=== PATIENT | male | born 1945 | race Caucasian/White ===

== ENCOUNTER 2016-11-03 14:26 | Emergency (ER) | payer MEDICARE, OTHER ==
[2016-11-03 14:35] VITALS: BP 115/64
[2016-11-03] MEDS ORDERED: Bacitracin/Neomycin/Polymyxin B Oint 0.9 GM U/D Packet TOP ONE (14:47)
--- NOTE | 2016-11-03 14:49 | EDM.PDOC ---
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 Original injury was 3 weeks ago. Sutures removed and knee steri-stripped. Somehow patient broke open the suture line since sometime last evening. Advanced dementia. Clear drainage from suture line. No other complaints. - Related Data Allergies Allergy/AdvReac Type Severity Reaction Status Date / Time No Known Allergies Allergy Verified 10/13/16 18:58 Home Meds: Ambulatory Orders Medication Instructions Recorded Confirmed Docusate Sodium 100 mg PO DAILY PRN 10/13/16 11/03/16 QUEtiapine [SEROquel] 50 mg PO TID 10/13/16 11/03/16 Rivastigmine Tartrate 3 mg PO DAILY 10/13/16 11/03/16 [Rivastigmine] Acetaminophen 650 mg PO Q4H PRN 11/03/16 11/03/16 Past Medical History HEENT History: Reports: Hard of hearing, Impaired vision, Other (see below) Other HEENT History: preglaucoma Respiratory History: Reports: Other (see below) Other Respiratory History: solitary pulmonary nodule Gastrointestinal History: Reports: Chronic constipation, GERD Genitourinary History: Reports: Prostate disorder Musculoskeletal History: Reports: Osteoarthritis Psychiatric History: Reports: Dementia, PTSD, Other (see below) Other Psychiatric History: dementia with lewy bodies - Past Surgical History HEENT Surgical History: Reports: None Social & Family History - Tobacco Use Smoking Status *Q: Former Smoker Years of Tobacco use: 2 Packs/Tins Daily: 1 Used Tobacco, but Quit: Yes Month Tobacco Last Used: 5 yrs ago Second Hand Smoke Exposure: No - Caffeine Use Caffeine Use: Reports: None - Recreational Drug Use Recreational Drug Use: No ED ROS GENERAL - Review of Systems Review Of Systems: ROS reveals no pertinent complaints other than HPI. ED EXAM, SKIN/RASH Exam: See Below Exam Limited By: Altered mental status (dementia) General Appearance: alert (awake, sitting in wheelchair), no apparent distress Head: atraumatic, normocephalic Respiratory/Chest: no respiratory distress Extremities: other (No swelling around affected right knee, no increased warmth or erythema. Partially healed suture line noted, with dehiscence in central portion. Full thickness. Approximately 4cm opened up. Does not appear tender with palpation. ) Neurological: alert Course - Vital Signs Last Recorded V/S: Last Vital Signs Temp 36.4 C 11/03/16 14:28 Pulse 86 11/03/16 14:28 Resp 20 11/03/16 14:28 BP 115/64 11/03/16 14:28 Pulse Ox 100 11/03/16 14:28 - Orders/Labs/Meds Meds: Medications Discontinued Medications Generic Name Dose Route Start Last Admin Trade Name Freq PRN Reason Stop Dose Admin Neomycin/Polymyxin/Bacitracin 1 each 11/03/16 14:47 11/03/16 14:51 Triple Antibiotic Oint TOP 11/03/16 14:48 1 each ONETIME ONE Administration - Re-Assessments/Exams Free Text/Narrative Re-Assessment/Exam: 11/03/16 15:07 Unable to re-suture wound due to it's history of dehiscence and length of time it was open. 3 edel placed to keep margins together but allow drainage to continue as needed. Wound cleansed with saline. Antibiotic ointment applied to margins. Bandage then applied. Will request BID bandage changes and antibiotic ointment. Staff is to watch for changes and if any sign of infection develops patient will need placed on oral antibiotics. Wound check recommended for Saturday or Saturday at latest. Departure - Departure Time of Disposition: 14:47 Disposition: DC/Tfer to [facility] 03 Condition: good Clinical Impression: Wound dehiscence Forms: ED Department Discharge Additional Instructions: Keep dressing over wound to help with drainage. Triple antibiotic ointment twice daily. Follow up with [facility] Saturday or Saturday for wound check. Follow up as needed if any sign of infection develops, including worsening drainage, increased redness, fevers, purulent changes. Edel out 10-12 days
== END 2016-11-03 15:01 ==
LOC: LL.ED 14:26
DX: T81.30XA Disruption of wound, unspecified, initial encounter (principal); F03.90 Unspecified dementia, unspecified severity, without behavioral disturbance, psychotic disturbance, mood disturbance, and anxiety; K21.9 Gastro-esophageal reflux disease without esophagitis; M19.90 Unspecified osteoarthritis, unspecified site; Z87.891 Personal history of nicotine dependence
CPT/HCPCS: 12001; 99282

== ENCOUNTER 2018-01-19 13:21 | Emergency (ER) | payer MEDICARE, OTHER ==
--- NOTE | 2018-01-19 14:20 | EDM.PDOC ---
ED HPI GENERAL MEDICAL PROBLEM - General Chief Complaint: General Stated Complaint: Left Hip Pain Time Seen by Provider: 01/19/18 13:37 Source of Information: Reports: Other ([facility] staff) History Limitations: Reports: Altered Mental Status - History of Present Illness INITIAL COMMENTS - FREE TEXT/NARRATIVE: Patient noted to be complaining of discomfort in hip area when he was sitting in tub chair earlier today. Complaining of pain in left hip area. Staff worried about possible fracture as patient is prone to falls and has fallen recently. No other specific complaints from [facility] staff other than "lump" left elbow area. Patient it otherwise acting like usual self. No recent head trauma. No reported medication changes. No reported other changes in health/fever/appetite. Patient has dementia and is unable to give accurate ROS. No discomfort when patient allowed to lay still. He did show discomfort when left hip palpated. Patient was able to ambulate at [facility] prior to being sent to ER for evaluation. - Related Data Allergies Allergy/AdvReac Type Severity Reaction Status Date / Time No Known Allergies Allergy Verified 10/13/16 18:58 Home Meds: Home Meds Docusate Sodium 100 mg PO DAILY PRN 10/13/16 [History] QUEtiapine [SEROquel] 50 mg PO TID 10/13/16 [History] Rivastigmine Tartrate [Rivastigmine] 3 mg PO DAILY 10/13/16 [History] Acetaminophen 650 mg PO Q4H PRN 11/03/16 [History] Past Medical History HEENT History: Reports: Hard of Hearing, Impaired Vision, Other (See Below) Other HEENT History: preglaucoma Respiratory History: Reports: Other (See Below) Other Respiratory History: solitary pulmonary nodule Gastrointestinal History: Reports: Chronic Constipation, GERD Genitourinary History: Reports: Prostate Disorder Musculoskeletal History: Reports: Osteoarthritis Psychiatric History: Reports: Dementia, PTSD, Other (See Below) Other Psychiatric History: dementia with lewy bodies - Past Surgical History HEENT Surgical History: Reports: None Social & Family History - Family History Family Medical History: Unobtainable - Tobacco Use Smoking Status *Q: Unknown Ever Smoked - Caffeine Use Caffeine Use: Reports: None - Alcohol Use Alcohol Use History: No - Recreational Drug Use Recreational Drug Use: No Drug Use in Last 12 Months: No ED ROS GENERAL - Review of Systems Review Of Systems: Unable To Obtain ED EXAM, GENERAL - Physical Exam Exam: See Below Exam Limited By: Altered Mental Status General Appearance: Alert, No Apparent Distress, Thin Eye Exam: Bilateral Eye: EOMI, PERRL Ears: Normal External Exam, Normal Canal Nose: No: Nasal Deformity, Nasal Swelling, Nasal Drainage Throat/Mouth: Normal Lips, No Airway Compromise Head: Atraumatic, Normocephalic Neck: Supple, Non-Tender Respiratory/Chest: No Respiratory Distress, Lungs Clear, Normal Breath Sounds, No Accessory Muscle Use, Chest Non-Tender Cardiovascular: Regular Rate, Rhythm, Systolic Murmur Peripheral Pulses: 2+: Radial (L), Radial (R) GI/Abdominal: Soft, Non-Tender (Male) Exam: Other (bruising noted left hip area, does not appear to extend into genital region). No: Scrotal Swelling Rectal (Males) Exam: Deferred Back Exam: Other (No specific bone tenderness identified with palpation along entire spine/tailbone. No noted bruising over back area/no tenderness. ) Extremities: Normal Capillary Refill, Other (negative straight leg raise. No shorting/rotation of lower leg noted. Patient does have some significant bruising over left lateral hip/buttock area. Skin is intact. Area mildy firm to touch suggesting some degree of soft tissue swelling and hematoma formation. Pelvis appears stable. Bursa left elbow is enlarged but is not tender with palpation. No erythema around bursa. ). No: Arm Pain Neurological: Alert, Other (appears to have equal tone/strength bilateral upper and lower extremities. ) Psychiatric: Normal Affect, Normal Mood Skin Exam: Warm, Dry, Ecchymosis, Other (healing skin tear left forearm. Several healing small abrasions left buttock/hip. ) Course - Orders/Labs/Meds Orders: Active Orders 24 hr Category Date Time Status Hip Min 3V or 4V w Pelvis Bi [CR] Stat Exams 01/19/18 13:23 Taken - Radiology Interpretation Free Text/Narrative:: Xrays of pelvis and hips do not appear to show obvious fracture. Radiology review still pending. - Re-Assessments/Exams Free Text/Narrative Re-Assessment/Exam: 01/19/18 14:39 Patient noted to have significant bruising over left hip and buttock area, however no obvious fractures identified. OK to return to [facility] home. To follow up on next [facility] rounds for recheck as well as to discuss if any other changes can be made to help reduce fall risk. To follow up otherwise as needed. UA recommended to r/o any possible UTI involvement with falls. Departure - Departure Time of Disposition: 14:13 Disposition: DC/Tfer to SNF 03 Condition: Fair Clinical Impression: Multiple falls, Effusion of bursa of left elbow Contusion of left hip Qualifiers: Encounter type: initial encounter Qualified Code(s): S70.02XA - Contusion of left hip, initial encounter - Discharge Information Referrals: Sheets-Florencia Morfin MD [Primary Care Provider] - Forms: ED Department Discharge Additional Instructions: Follow up as needed. Fall precautions as able to provide. Recommend urinalysis and follow up with [facility] on routine rounding if falls are becoming more frequent. - My Orders Last 24 Hours: My Active Orders 01/19/18 13:23 Hip Min 3V or 4V w Pelvis Bi [CR] Stat - Assessment/Plan Last 24 Hours: My Active Orders 01/19/18 13:23 Hip Min 3V or 4V w Pelvis Bi [CR] Stat
[2018-01-19 14:38] VITALS: BP 136/69
== END 2018-01-19 14:53 ==
LOC: LL.ED 13:21
DX: S70.02XA Contusion of left hip, initial encounter (principal); M25.422 Effusion, left elbow; K21.9 Gastro-esophageal reflux disease without esophagitis; Z79.899 Other long term (current) drug therapy; X50.9XXA Other and unspecified overexertion or strenuous movements or postures, initial encounter; Z91.81 History of falling
CPT/HCPCS: 99283

== ENCOUNTER 2018-01-21 15:58 | Emergency (ER) | payer MEDICARE, OTHER ==
[2018-01-21 16:01] VITALS: BP 100/65
--- NOTE | 2018-01-21 16:06 | EDM.PDOC ---
ED HPI GENERAL MEDICAL PROBLEM - General Chief Complaint: General Stated Complaint: recurrent falls, left hip pain Time Seen by Provider: 01/21/18 16:05 Source of Information: Reports: Patient, [facility] Records (Limited), Old Records ([facility] EMR. No paper hospital chart available.) History Limitations: Reports: Altered Mental Status - History of Present Illness INITIAL COMMENTS - FREE TEXT/NARRATIVE: The patient was brought to the emergency room via transport vehicle from [facility] in [place] secondary to an additional fall this afternoon with only limited information obtained from the shelter prior to transfer. Subsequent to arrival to the shelter telephone consultation between our emergency room nurse, Sonya, and the nurses from the shelter indicates a non-witnessed fall at about 15:00 hours with possible mild head injury, however no known headaches, visual changes, nausea/emesis, loss of consciousness, change in neurological deficits/mental status, or other complaints or injuries other than as below. Patient does have a previous history of recurrent falls likely secondary to his Parkinson's disease with evaluation in this emergency room on 01/19 for a similar problem with negative x-rays at that time. He has had problems weightbearing on his left hip since today's injury, however normally ambulates without a walker with some problems with ambulation, including shuffled gait, etc.. He did initially apparently complain of some nonspecific left wrist pain, however no complaints at this time. 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 The patient is unable to rate his pain or discomfort. No treatment given prior to transfer to this facility. Onset: Today, Unknown/Unsure Onset Date: 01/21/18 Duration: Constant Location: Reports: Upper Extremity, Left (Briefly initially as above), Lower Extremity, Left. Denies: Head, Face, Neck, Chest, Abdomen, Back, Pelvis, Upper Extremity, Right, Lower Extremity, Right, Radiates to Quality: Reports: Same as Previous Episode Severity: Mild Improves with: Reports: Rest Worsens with: Reports: Movement Context: Reports: Other (As above) Associated Symptoms: Reports: Confusion (Stable by history). Denies: Chest Pain , Cough, Diaphoresis, Fever/Chills, Headaches, Malaise, Nausea/Vomiting, Seizure , Shortness of Breath, Syncope, Weakness Treatments SHEEPSKIN PICKLER: Reports: Other (see below) (None) - Related Data Allergies Allergy/AdvReac Type Severity Reaction Status Date / Time No Known Allergies Allergy Verified 10/13/16 18:58 Home Meds: Home Meds Docusate Sodium 100 mg PO DAILY PRN 10/13/16 [History] Acetaminophen 650 mg PO Q4H PRN 11/03/16 [History] Acetaminophen [Tylenol Arthritis] 650 mg PO BID@0700,1800 01/21/18 [History] Carbidopa/Levodopa [Sinemet 10-100 mg Tablet] 1 tab PO BID@1100,1500 01/21/18 [ History] Carbidopa/Levodopa [Sinemet 25-100 mg Tablet] 0.5 tab PO DAILY@0700 01/21/18 [ History] Ferrous Sulfate 325 mg PO BID #60 tablet 01/21/18 [Rx] Non-Formulary Medication [NF Drug] 1 patch TOP ASDIRECTED 01/21/18 [History] Omeprazole Magnesium [Prilosec Otc] 20 mg PO BID #60 tablet. 01/21/18 [Rx] Pimavanserin Tartrate [Nuplazid] 35 mg PO DAILY@0700 01/21/18 [History] Rivastigmine Tartrate [Rivastigmine] 1.5 mg PO BID@0700,1800 01/21/18 [History] Past Medical History HEENT History: Reports: Cataract, Glaucoma, Hard of Hearing, Impaired Vision, Other (See Below) Other HEENT History: preglaucoma Cardiovascular History: Reports: High Cholesterol Respiratory History: Reports: Other (See Below) Other Respiratory History: solitary pulmonary nodule Gastrointestinal History: Reports: Chronic Constipation, GERD Genitourinary History: Reports: BPH, Prostate Disorder Musculoskeletal History: Reports: Arthritis, Osteoarthritis Neurological History: Reports: Parkinson's, Other (See Below) Other Neuro History: Recurrent falls possibly secondary to his Parkinson's disease Psychiatric History: Reports: Alzheimers Disease, Dementia, PTSD, Other (See Below) Other Psychiatric History: dementia with lewy bodies Hematologic History: Reports: Anemia Dermatologic History: Reports: Other (See Below) Other Dermatologic History: Actinic keratosis - Past Surgical History HEENT Surgical History: Reports: Cataract Surgery, Oral Surgery, Other (See Below) Other HEENT Surgeries/Procedures: bilateral cataract surgery per clinical exam. Multiple teeth extractions. Social & Family History - Family History Family Medical History: Unobtainable - Tobacco Use Smoking Status *Q: Former Smoker Tobacco Use Within Last Twelve Months: No Used Tobacco, but Quit: Yes Month/Year Tobacco Last Used: Unable to obtain specifics. No use since 2011 per our records Smoking Cessation Information Provided To Patient: No Second Hand Smoke Exposure: No Second Hand Smoke Education Provided: No - Caffeine Use Caffeine Use: Reports: None - Living Situation & Occupation Living situation: Reports: Extended Care Facility ([facility] in [place] on the skilled side admitted in September 2017) ED ROS GENERAL - Review of Systems Review Of Systems: Unable To Obtain ED EXAM, GENERAL - Physical Exam Exam: See Below Exam Limited By: Altered Mental Status General Appearance: Alert, No Apparent Distress Eye Exam: Bilateral Eye: EOMI, Normal Fundi, Normal Inspection (No nystagmus. Patient not wearing glasses), PERRL Ears: Normal External Exam, Normal Canal, Normal TMs, Hearing Loss (Stable presbycusis by history with no hearing aides) Nose: Normal Inspection, Normal Mucosa, No Blood Throat/Mouth: Normal Lips, Normal Gums, Normal Oropharynx, Normal Voice, No Airway Compromise. No: Normal Teeth (Multiple missing teeth with no acute caries), Dysphagia, Perioral Cyanosis Head: Atraumatic, Normocephalic. No: Facial Swelling, Facial Tenderness, Sinus Tenderness Neck: Supple, Non-Tender, Full Range of Motion, Carotid Bruit (Mild bilateral carotid bruits). No: Lymphadenopathy (L), Lymphadenopathy (R) Respiratory/Chest: No Respiratory Distress, Lungs Clear, Normal Breath Sounds, No Accessory Muscle Use, Chest Non-Tender. No: Pleural Rub, Retractions Cardiovascular: Normal Peripheral Pulses, Regular Rate, Rhythm, No Edema, No Gallop, No JVD, No Murmur, No Rub. No: Gallop/S3, Gallop/S4, Friction Rub Peripheral Pulses: 2+: Radial (L), Radial (R), Dorsalis Pedis (L), Dorsalis Pedis (R) GI/Abdominal: Normal Bowel Sounds, Soft, Non-Tender, No Organomegaly, No Distention, No Abnormal Bruit, No Mass, Pelvis Stable. No: Guarding (Male) Exam: Deferred Rectal (Males) Exam: Deferred Back Exam: Normal Inspection, Full Range of Motion. No: CVA Tenderness (L), CVA Tenderness (R), Muscle Spasm Extremities: No Pedal Edema, Normal Capillary Refill, Limited Range of Motion ( Questionable limited range of motion of the left hip with borderline localized tenderness but no deformity, subluxation, rotation, crepitation, etc. Left wrist shows full range of motion with no snuffbox tenderness, deformity, palpation pain, etc.). No: Non-Tender (As below), Joint Swelling, Peggy's Sign Neurological: Normal Reflexes (Negative Babinski's), No Motor/Sensory Deficits, Confused (Stable organic brain syndrome by nurse's history from the shelter with patient mostly nonverbal) Psychiatric: Normal Affect, Normal Mood Skin Exam: Warm, Dry, Intact, No Rash, Pallor (Mild). No: Diaphoretic, Ecchymosis, Petechiae, Wound/Incision Lymphatic: No Adenopathy Course - Vital Signs Last Recorded V/S: Last Vital Signs Temp 36.2 C 01/21/18 16:00 Pulse 74 01/21/18 16:00 Resp 18 01/21/18 16:00 BP 100/65 01/21/18 16:00 Pulse Ox 100 01/21/18 16:00 Vital Signs - 24 hr 01/21/18 16:00 Temperature [ 36.2 C Oral] Pulse, 74 Peripheral [ Right Pulse Oximetry] Respiratory 18 Rate Blood Pressure 100/65 [Right Upper Arm] O2 Sat by Pulse 100 Oximetry - Orders/Labs/Meds Orders: Active Orders 24 hr Category Date Time Status Cardiac Monitoring [RC] . DIRECTED Care 01/21/18 16:06 Active Hip Min 2V or 3V w Pelvis Lt [CR] Stat Exams 01/21/18 16:07 Taken Hip wo Cont Bi [CT] Stat Exams 01/21/18 16:40 Stop Req Pelvis wo Cont [CT] Stat Exams 01/21/18 16:48 Taken VITAMIN B12 [CHEM] Routine Lab 01/21/18 16:45 Ordered Obtain Past Medical Record [OM.PC] Routine Oth 01/21/18 16:06 Active Labs: Laboratory Tests 01/21/18 01/21/18 01/21/18 Range/Units 16:15 16:15 16:15 WBC 6.4 (4.0-10.2) K/uL RBC 2.74 L (4.33-5.41) M/uL Hgb 8.4 L D (13.1-16.8) g/dL Hct 26.4 L (39.0-49.0) % MCV 96.4 (84.0-98.0) fL MCH 30.7 (28.2-33.3) pg MCHC 31.8 (31.7-36.0) g/dL RDW 12.2 (11.2-14.1) % Plt Count 252 (150-350) K/uL Neut % (Auto) 78.9 (45.0-80.0) % Lymph % (Auto) 12.6 (10.0-50.0) % Jasper % (Auto) 7.4 (2.0-14.0) % Eos % (Auto) 0.8 (0.0-5.0) % Baso % (Auto) 0.3 (0.0-2.0) % Neut # (Auto) 5.01 (1.40-7.00) K/uL Lymph # (Auto) 0.80 (0.50-3.50) K/uL Jasper # (Auto) 0.47 (0.00-1.00) K/uL Eos # (Auto) 0.05 (0.00-0.50) K/uL Baso # (Auto) 0.02 (0.00-0.20) K/uL Sodium 140 (136-145) mmol/L Potassium 4.0 (3.5-5.1) mmol/L Chloride 105 (98-107) mmol/L Carbon Dioxide 26.9 (21.0-32.0) mmol/L BUN 37 H (7-18) mg/dL Creatinine 1.02 (0.51-1.17) mg/dL Est Cr Clr Drug Dosing 55.62 mL/min Estimated GFR (MDRD) > 60 mL/min Glucose 104 (74-106) mg/dL Lactic Acid 1.0 (0.4-2.0) mmol/L Calcium 8.6 (8.5-10.1) mg/dL Iron (50-175) ug/dL TIBC (250-450) ug/dL % Saturation Total Bilirubin 0.6 (0.2-1.0) mg/dL AST 16 (15-37) U/L ALT 11 L (12-78) U/L Alkaline Phosphatase 78 (46-116) IU/L Total Protein 6.6 (6.4-8.2) g/dL Albumin 3.5 (3.4-5.0) g/dL 01/21/18 Range/Units 16:15 WBC (4.0-10.2) K/uL RBC (4.33-5.41) M/uL Hgb (13.1-16.8) g/dL Hct (39.0-49.0) % MCV (84.0-98.0) fL MCH (28.2-33.3) pg MCHC (31.7-36.0) g/dL RDW (11.2-14.1) % Plt Count (150-350) K/uL Neut % (Auto) (45.0-80.0) % Lymph % (Auto) (10.0-50.0) % Jasper % (Auto) (2.0-14.0) % Eos % (Auto) (0.0-5.0) % Baso % (Auto) (0.0-2.0) % Neut # (Auto) (1.40-7.00) K/uL Lymph # (Auto) (0.50-3.50) K/uL Jasper # (Auto) (0.00-1.00) K/uL Eos # (Auto) (0.00-0.50) K/uL Baso # (Auto) (0.00-0.20) K/uL Sodium (136-145) mmol/L Potassium (3.5-5.1) mmol/L Chloride (98-107) mmol/L Carbon Dioxide (21.0-32.0) mmol/L BUN (7-18) mg/dL Creatinine (0.51-1.17) mg/dL Est Cr Clr Drug Dosing mL/min Estimated GFR (MDRD) mL/min Glucose (74-106) mg/dL Lactic Acid (0.4-2.0) mmol/L Calcium (8.5-10.1) mg/dL Iron 28 L (50-175) ug/dL TIBC 237 L (250-450) ug/dL % Saturation [id number] Total Bilirubin (0.2-1.0) mg/dL AST (15-37) U/L ALT (12-78) U/L Alkaline Phosphatase (46-116) IU/L Total Protein (6.4-8.2) g/dL Albumin (3.4-5.0) g/dL Meds: None - Radiology Interpretation Free Text/Narrative:: [email or web address] driver shows normal sinus rhythm with heart rate in the 60s to 70s with no ectopy or arrhythmia X-rays of the left hip, 2 views, with additional AP view of the pelvis shows evidence of some malrotation of the right hip with additional possible hairline calcification in the femoral neck but no direct evidence of fracture, dislocation, etc. Moderate bilateral coxarthrosis present. Telephone consultation at 17:39 hours with the radiology department at [facility] with pulmonary verbal report of CT scan of the pelvis without contrast. No evidence of acute fracture or dislocation. Left gluteal hematoma present. CT Results Date: 01/21/18 CT Results Time: 17:39 Departure - Departure Time of Disposition: 18:55 Disposition: DC/Tfer to SNF 03 Condition: Fair Clinical Impression: Left hip pain, PTSD (post-traumatic stress disorder), Comfort measures only status, Parkinsons disease Osteoarthritis Qualifiers: Osteoarthritis location: multiple joints Osteoarthritis type: primary Qualified Code(s): M15.0 - Primary generalized (osteo)arthritis GERD (gastroesophageal reflux disease) Qualifiers: Esophagitis presence: without esophagitis Qualified Code(s): K21.9 - Gastro- esophageal reflux disease without esophagitis Dementia with Lewy bodies Qualifiers: Dementia behavioral disturbance: with behavioral disturbance Qualified Code(s) : G31.83 - Dementia with Lewy bodies; F02.81 - Dementia in other diseases classified elsewhere with behavioral disturbance Anemia Qualifiers: Anemia type: iron deficiency Iron deficiency anemia type: unspecified iron deficiency Qualified Code(s): D50.9 - Iron deficiency anemia, unspecified Contusion of left hip Qualifiers: Encounter type: initial encounter Qualified Code(s): S70.02XA - Contusion of left hip, initial encounter - Discharge Information Prescriptions: Ferrous Sulfate 325 mg PO BID #60 tablet Omeprazole Magnesium [Prilosec Otc] 20 mg PO BID #60 tablet. Instructions: Head Injury, Adult, Anemia, Contusion, Head Injury, Adult, Easy- to-Read Referrals: Radha Saha PA [Primary Care Provider] - Forms: ED Department Discharge Additional Instructions: 1. Notify regular provider concerning recurrent falls, today's ER visit, medication changes, etc. with consideration of further medication adjustments by regular provider. Vitamin B 12 level is still pending 2. Recommend repeat CBC in 1 week with repeat iron studies in one month. Discuss with regular provider as above 3. Continue strict fall precautions 4. Discuss possible stool specimen for H. pylori antigen and Hemoccults 3 with regular provider 5. Ice packs to left hip and gluteal area 4 times a day when necessary 10 days 6. Head precautions as directed-see form. - Problem List & Annotations (1) Contusion of left hip SNOMED Code(s): 49535152 Code(s): S70.02XA - CONTUSION OF LEFT HIP, INITIAL ENCOUNTER Status: Acute Priority: High Onset Date: 01/21/18 Annotation/Comment:: Moderate left hip contusion with borderline mild additional head contusion secondary to recurrent falls as above. Note secondary gluteal hematoma. Symptomatic relief as per discharge instructions. No evidence of significant head injury, head concussion, etc. by clinical exam, etc. Qualifiers: Encounter type: initial encounter Qualified Code(s): S70.02XA - Contusion of left hip, initial encounter (2) Anemia SNOMED Code(s): 081648009 Code(s): D64.9 - ANEMIA, UNSPECIFIED Status: Acute Priority: High Onset Date: 01/21/18 Annotation/Comment:: Progressive anemia today with hemoglobin of 11.2 on 11/06/16 per our hospital records. Anemia may be partial etiology of patient's recurrent falls in addition to his Parkinson's disease as above. Newly diagnosed iron deficiency anemia today. Vitamin B 12 level pending until tomorrow. No direct evidence of abdominal pain, acute bleeding, etc. Initiate iron supplementation with additional oral Prilosec as GI prophylaxis. Continue to observe closely by his regular providers with recommended repeat CBC in one week and iron studies in about one month as per discharge instructions. Qualifiers: Anemia type: iron deficiency (3) GERD (gastroesophageal reflux disease) SNOMED Code(s): 026370407 Code(s): K21.9 - GASTRO-ESOPHAGEAL REFLUX DISEASE WITHOUT ESOPHAGITIS Status: Chronic Priority: Medium Annotation/Comment:: Stable by history with no recent abdominal complaints despite progressive anemia as above. Note comfort care with further GI workup depending on his clinical course. Initiate Prilosec as above with consideration of stool specimen for H. pylori antigen. Qualifiers: Esophagitis presence: without esophagitis Qualified Code(s): K21.9 - Gastro -esophageal reflux disease without esophagitis (4) Comfort measures only status SNOMED Code(s): 44508880519628 Code(s): Z51.5 - ENCOUNTER FOR PALLIATIVE CARE Status: Chronic Priority: Medium Annotation/Comment:: Per shelter records (5) Dementia with Lewy bodies SNOMED Code(s): 413382288 Code(s): G31.83 - DEMENTIA WITH LEWY BODIES; F02.80 - DEMENTIA IN OTH DISEASES CLASSD ELSWHR W/O BEHAVRL DISTURB Status: Chronic Priority: Medium Annotation/Comment:: Stable by history with fairly significant organic brain syndrome/dementia, although the patient is ambulatory Qualifiers: Dementia behavioral disturbance: with behavioral disturbance Qualified Code (s): G31.83 - Dementia with Lewy bodies; F02.81 - Dementia in other diseases classified elsewhere with behavioral disturbance (6) Osteoarthritis SNOMED Code(s): 759551188 Code(s): M19.90 - UNSPECIFIED OSTEOARTHRITIS, UNSPECIFIED SITE Status: Chronic Priority: Medium Annotation/Comment:: Otherwise Stable by history Qualifiers: Osteoarthritis location: multiple joints Osteoarthritis type: primary Qualified Code(s): M15.0 - Primary generalized (osteo)arthritis (7) PTSD (post-traumatic stress disorder) SNOMED Code(s): 40102131 Code(s): F43.10 - POST-TRAUMATIC STRESS DISORDER, UNSPECIFIED Status: Chronic Priority: Medium Annotation/Comment:: Stable by history - Problem List Review Problem List Initiated/Reviewed/Updated: Yes - My Orders Last 24 Hours: My Active Orders 01/21/18 16:06 Cardiac Monitoring [RC] . DIRECTED Obtain Past Medical Record [OM.PC] Routine 01/21/18 16:07 Hip Min 2V or 3V w Pelvis Lt [CR] Stat 01/21/18 16:40 Hip wo Cont Bi [CT] Stat 01/21/18 16:45 VITAMIN B12 [CHEM] Routine 01/21/18 16:48 Pelvis wo Cont [CT] Stat - Assessment/Plan Last 24 Hours: My Active Orders 01/21/18 16:06 Cardiac Monitoring [RC] . DIRECTED Obtain Past Medical Record [OM.PC] Routine 01/21/18 16:07 Hip Min 2V or 3V w Pelvis Lt [CR] Stat 01/21/18 16:40 Hip wo Cont Bi [CT] Stat 01/21/18 16:45 VITAMIN B12 [CHEM] Routine 01/21/18 16:48 Pelvis wo Cont [CT] Stat Assessment:: As above Plan: As above. Extensive precautions were given to the patient, who is in agreement with the treatment plan.
[2018-01-21 16:33] LABS: CHLORIDE,CL 105 mmol/L (98-107); SODIUM,NA 140 mmol/L (136-145)
== END 2018-01-21 18:55 ==
LOC: LL.ED 15:58
DX: S70.02XA Contusion of left hip, initial encounter (principal); F43.10 Post-traumatic stress disorder, unspecified; G20 Parkinson's disease; M15.0 Primary generalized (osteo)arthritis; K21.9 Gastro-esophageal reflux disease without esophagitis; D50.9 Iron deficiency anemia, unspecified; E78.00 Pure hypercholesterolemia, unspecified; Z87.891 Personal history of nicotine dependence; Z79.899 Other long term (current) drug therapy; W19.XXXA Unspecified fall, initial encounter
CPT/HCPCS: 36415; 72192; 80053; 82607; 83540; 83550; 83605; 85025; 99284; 99285

== ENCOUNTER 2018-02-03 01:13 | Emergency (ER) | payer MEDICARE, OTHER ==
--- NOTE | 2018-02-03 01:49 | EDM.PDOC ---
ED HPI GENERAL MEDICAL PROBLEM - General Chief Complaint: General Stated Complaint: multiple falls, hit head, L) hip and back pain Time Seen by Provider: 02/03/18 01:30 Source of Information: Reports: RN (was called and obtain history) History Limitations: Reports: Altered Mental Status - History of Present Illness INITIAL COMMENTS - FREE TEXT/NARRATIVE: patient is a 72-year-old gentleman who was brought from the [facility] for evaluation. He apparently fell4 about 24 hours ago and was being evaluated with neuro exams and checks every shift. Patient had been stable until now when he was not following commands and nurses noted increased pain in both hips and back. Onset: Gradual Duration: Hour(s):, Getting Worse Location: Reports: Back, Pelvis, Lower Extremity, Left, Lower Extremity, Right Quality: Reports: Ache, Stabbing Severity: Moderate (difficult to evaluate since patient has not been able to communicate) Improves with: Reports: Rest Worsens with: Reports: Movement Context: Reports: Trauma Associated Symptoms: Reports: Confusion - Related Data Allergies Allergy/AdvReac Type Severity Reaction Status Date / Time No Known Allergies Allergy Verified 02/03/18 01:31 Home Meds: Home Meds Docusate Sodium 100 mg PO DAILY PRN 10/13/16 [History] Acetaminophen 650 mg PO Q4H PRN 11/03/16 [History] Acetaminophen [Tylenol Arthritis] 650 mg PO BID@0700,1800 01/21/18 [History] Carbidopa/Levodopa [Sinemet 25-100 mg Tablet] 0.5 tab PO DAILY@0700 01/21/18 [ History] Ferrous Sulfate 325 mg PO BID #60 tablet 01/21/18 [Rx] Omeprazole Magnesium [Prilosec Otc] 20 mg PO BID #60 tablet. 01/21/18 [Rx] Rivastigmine Tartrate [Rivastigmine] 1.5 mg PO BID@0700,1800 01/21/18 [History] Bisacodyl [Dulcolax] 5 mg PO DAILY PRN 02/03/18 [History] Carbidopa/Levodopa [Carbidopa-Levodopa 25-100 Tab] 1 each PO BID 02/03/18 [ History] Past Medical History HEENT History: Reports: Cataract, Glaucoma, Hard of Hearing, Impaired Vision, Other (See Below) Other HEENT History: preglaucoma Cardiovascular History: Reports: High Cholesterol Respiratory History: Reports: Other (See Below) Other Respiratory History: solitary pulmonary nodule Gastrointestinal History: Reports: Chronic Constipation, GERD Genitourinary History: Reports: BPH, Prostate Disorder Musculoskeletal History: Reports: Arthritis, Osteoarthritis Neurological History: Reports: Parkinson's, Other (See Below) Other Neuro History: Recurrent falls possibly secondary to his Parkinson's disease Psychiatric History: Reports: Alzheimers Disease, Dementia, PTSD, Other (See Below) Other Psychiatric History: dementia with lewy bodies Hematologic History: Reports: Anemia Dermatologic History: Reports: Other (See Below) Other Dermatologic History: Actinic keratosis - Past Surgical History HEENT Surgical History: Reports: Cataract Surgery, Oral Surgery, Other (See Below) Other HEENT Surgeries/Procedures: bilateral cataract surgery per clinical exam. Multiple teeth extractions. Social & Family History - Family History Family Medical History: Unobtainable - Caffeine Use Caffeine Use: Reports: None - Living Situation & Occupation Living situation: Reports: Extended Care Facility ([facility] in [place] on the [facility] side admitted in September 2017) ED ROS GENERAL - Review of Systems Review Of Systems: See Below Constitutional: Reports: Weakness HEENT: Reports: No Symptoms Respiratory: Reports: No Symptoms Cardiovascular: Reports: No Symptoms GI/Abdominal: Reports: No Symptoms : Reports: No Symptoms Musculoskeletal: Reports: Neck Pain, Back Pain, Other (hip pain) Neurological: Reports: Confusion, Weakness Psychiatric: Reports: Agitation, Confusion Hematologic/Lymphatic: Reports: No Symptoms Immunologic: Reports: No Symptoms ED EXAM, GENERAL - Physical Exam Exam: See Below (patient became very aggressive towards the nurses. He attempted to strike at us and wouldn't follow instructions to stay in bed. He tried getting away. At this time, he was a risk to himself and to the nurses. Due to his pain we gave him Dilaudid 1 mg IM followed by Ativan 1 mg to see if we can control his aggression and agitation. We do not want him to hurt the nurses or himself.) Exam Limited By: Physical Impairment General Appearance: Alert (and awake), WD/WN Ears: Normal External Exam, Normal Canal, Hearing Grossly Normal Nose: Normal Inspection, Normal Mucosa, No Blood Throat/Mouth: Normal Inspection, Normal Lips, Normal Teeth, Normal Gums, Normal Oropharynx, Normal Voice, No Airway Compromise Head: Atraumatic, Normocephalic Respiratory/Chest: No Respiratory Distress, Lungs Clear, Normal Breath Sounds, No Accessory Muscle Use, Chest Non-Tender Cardiovascular: Normal Peripheral Pulses, Regular Rate, Rhythm, No Edema, No Gallop, No JVD, No Murmur, No Rub GI/Abdominal: Normal Bowel Sounds, Soft, Non-Tender, No Organomegaly, No Distention, No Abnormal Bruit, No Mass (Male) Exam: Deferred Rectal (Males) Exam: Deferred Back Exam: Decreased Range of Motion, Paraspinal Tenderness, Vertebral Tenderness Extremities: Limited Range of Motion (lower extremity), Other (pain on range of motion left iliac crests area of swelling with tenderness to palpation as compared to right question ecchymosis of the area) Neurological: Confused, Slow to Respond Psychiatric: Other (difficult to access) Skin Exam: Warm, Dry, Intact, Ecchymosis (lower back left buttocks) Lymphatic: No Adenopathy Course - Vital Signs Last Recorded V/S: Last Vital Signs Temp 98.9 F 02/03/18 01:15 Pulse 73 02/03/18 01:45 Resp 14 02/03/18 01:45 BP 117/59 L 02/03/18 01:45 Pulse Ox 100 02/03/18 01:45 - Orders/Labs/Meds Meds: Medications Discontinued Medications Generic Name Dose Route Start Last Admin Trade Name Rock PRN Reason Stop Dose Admin Hydromorphone HCl Confirm 02/03/18 02:44 02/03/18 02:50 Dilaudid Administered 02/03/18 02:45 Not Given Dose 1 mg .ROUTE .STK-MED ONE Hydromorphone HCl 1 mg 02/03/18 02:44 02/03/18 02:45 Dilaudid IM 02/03/18 02:45 1 mg ONETIME ONE Administration Lorazepam Confirm 02/03/18 03:11 02/03/18 03:32 Ativan Administered 02/03/18 03:12 Not Given Dose 2 mg .ROUTE .STK-MED ONE Lorazepam 1 mg 02/03/18 02:47 02/03/18 02:48 Ativan IM 02/03/18 02:48 1 mg ONETIME ONE Administration Departure - Departure Time of Disposition: 03:00 Disposition: DC/Tfer to SNF 03 Condition: Fair Clinical Impression: Multiple falls Hip hematoma, left Qualifiers: Encounter type: initial encounter Qualified Code(s): S70.02XA - Contusion of left hip, initial encounter - Discharge Information Instructions: Fall Prevention in the Home, [id number], Contusion, Easy-to- Read Referrals: Sheets-Florencia Morfin MD [Primary Care Provider] - Forms: ED Department Discharge Care Plan Goals: At this time since, patient was aggressive and appeared in pain on the x-ray table. We went ahead and gave him Dilaudid 1 mg for his pain while in the emergency room patient attempted to get out of bed and punched the nurses. At this time patient appeared to be a threat to himself and to the staff patient was reoriented with no success we went ahead and gave him 1 mg of Ativan to calm down patient will be transferred to [facility]. Patient to resume Tylenol for pain control at [facility]. 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 labs were not drawn due to agitation during visit. Patient had scheduled lab draws for the morning at [facility] in AM.
[2018-02-03] MEDS ORDERED: HYDROmorphone 1 MG/ML Syringe ONE (02:44)
[2018-02-03] MEDS ORDERED: HYDROmorphone 1 MG/ML Syringe IM ONE (02:44)
[2018-02-03] MEDS ORDERED: LORazepam 2 MG/ML SDV IM ONE (02:47)
[2018-02-03] MEDS ORDERED: LORazepam 2 MG/ML SDV ONE (03:11)
[2018-02-03 06:35] VITALS: BP 117/59
== END 2018-02-03 03:00 ==
LOC: LL.ED 01:13
DX: S70.02XA Contusion of left hip, initial encounter (principal); Z79.899 Other long term (current) drug therapy; E78.00 Pure hypercholesterolemia, unspecified; K21.9 Gastro-esophageal reflux disease without esophagitis; Z91.81 History of falling; W19.XXXA Unspecified fall, initial encounter
CPT/HCPCS: 72100; 72220; 96372; 99284; J1170; J2060

== ENCOUNTER 2018-03-19 01:24 | Emergency (ER) | payer OTHER ==
--- NOTE | 2018-03-19 01:49 | EDM.PDOC ---
ED HPI GENERAL MEDICAL PROBLEM - General Chief Complaint: Lower Extremity Injury/Pain Stated Complaint: fall; left hip pain Time Seen by Provider: 03/19/18 01:45 Source of Information: Reports: Patient, EMS, Correction Records, Old Records ([facility] EMR. No paper hospital chart available.). Denies: EMS Notes Reviewed (Not available at time of dictation) History Limitations: Reports: Altered Mental Status - History of Present Illness INITIAL COMMENTS - FREE TEXT/NARRATIVE: The patient was brought to the emergency room via ambulance with table machine operator accompaniment with no treatment in route. He has a long history of recurrent falls with 3 falls of the last 24 hours. He apparently had an unwitnessed fall at 1 AM with left hip deformity and discomfort since that time. The patient is an extremely poor historian secondary to his baseline again brain syndrome. He is unable to rate his pain. Onset: Today, Sudden Onset Date: 03/19/18 Onset Time: 01:00 Duration: Constant Location: Reports: Lower Extremity, Left. Denies: Head, Face, Neck, Chest, Abdomen, Back, Pelvis, Upper Extremity, Left, Upper Extremity, Right, Lower Extremity, Right, Radiates to Quality: Reports: Same as Previous Episode Improves with: Reports: Rest Worsens with: Reports: Movement Context: Reports: Trauma (As above) Associated Symptoms: Reports: Confusion (Stable moderate to severe). Denies: Nausea/Vomiting Treatments SEAL MIXING OPERATOR: Reports: Other (see below) (None) - Related Data Allergies Allergy/AdvReac Type Severity Reaction Status Date / Time No Known Allergies Allergy Verified 03/19/18 01:39 Home Meds: Home Meds Docusate Sodium 100 mg PO DAILY PRN 10/13/16 [History] Ferrous Sulfate 325 mg PO BID #60 tablet 01/21/18 [Rx] Omeprazole Magnesium [Prilosec Otc] 20 mg PO BID #60 tablet. 01/21/18 [Rx] Rivastigmine Tartrate [Rivastigmine] 1.5 mg PO BID@0700,1800 01/21/18 [History] Bisacodyl [Dulcolax] 5 mg PO DAILY PRN 02/03/18 [History] Acetaminophen [Tylenol Extra Strength] 1,000 mg PO TID 03/19/18 [History] Carbidopa/Levodopa [Sinemet 25-100 mg Tablet] 1 tab PO TID 03/19/18 [History] Melatonin 9 mg PO BEDTIME 03/19/18 [History] QUEtiapine [SEROquel] 25 mg PO DAILY@1400 03/19/18 [History] QUEtiapine [SEROquel] 75 mg PO BEDTIME 03/19/18 [History] Past Medical History HEENT History: Reports: Cataract, Glaucoma, Hard of Hearing, Impaired Vision, Other (See Below) Other HEENT History: preglaucoma Cardiovascular History: Reports: High Cholesterol Respiratory History: Reports: Other (See Below) Other Respiratory History: solitary pulmonary nodule Gastrointestinal History: Reports: Chronic Constipation, GERD Genitourinary History: Reports: BPH, Chronic Renal Insuffiency, Prostate Disorder, Urinary Incontinence, Other (See Below) Other Genitourinary History: Right renal pelvic cyst by CT scan in December 2017 Musculoskeletal History: Reports: Arthritis, Osteoarthritis Neurological History: Reports: Parkinson's, Other (See Below) Other Neuro History: Recurrent falls possibly secondary to his Parkinson's disease Psychiatric History: Reports: Alzheimers Disease, Anxiety, Dementia, Depression , PTSD, Other (See Below) Other Psychiatric History: dementia with Lewy bodies with combativness. Chronic insomnia. Endocrine/Metabolic History: Reports: Other (See Below) Other Endocrine/Metabolic History: Progressive cachexia with hypoalbuminemia Hematologic History: Reports: Anemia, Iron Deficiency Immunologic History: Reports: Immunosuppression, Other (See Below) Other Immunologic History: Cachexia Dermatologic History: Reports: Other (See Below) Other Dermatologic History: Actinic keratosis - Past Surgical History HEENT Surgical History: Reports: Cataract Surgery, Oral Surgery, Other (See Below) Other HEENT Surgeries/Procedures: bilateral cataract surgery per clinical exam. Multiple teeth extractions. - Past Imaging History Past Imaging History: Reports: CAT Scan (CT of the pelvis on 01/21/18. CT of the head on 02/03/18.) Social & Family History - Family History Family Medical History: Unobtainable - Tobacco Use Smoking Status *Q: Current Status Unknown Second Hand Smoke Exposure: No Second Hand Smoke Education Provided: No - Caffeine Use Caffeine Use: Reports: None Caffeine Use Comment: pt has dementia does not answer questions - Living Situation & Occupation Living situation: Reports: Extended Care Facility ([facility] in [place] on the skilled side admitted in September 2017) Review of Systems - Review of Systems Review Of Systems: Unable To Obtain ED EXAM, GENERAL - Physical Exam Exam: See Below Exam Limited By: Altered Mental Status General Appearance: Alert, No Apparent Distress, Cachetic (Mild to moderate) Eye Exam: Bilateral Eye: EOMI, Normal Fundi (No nystagmus), PERRL Ears: Normal External Exam, Normal Canal, Normal TMs Nose: Normal Inspection, Normal Mucosa, No Blood Throat/Mouth: Normal Lips, Normal Teeth (Multiple missing teeth), Normal Gums, Normal Oropharynx, Normal Voice, No Airway Compromise. No: Dysphagia, Perioral Cyanosis Head: Atraumatic, Normocephalic Neck: Normal Inspection, Supple, Non-Tender, Full Range of Motion, Carotid Bruit (Mild bilateral carotid bruits). No: Lymphadenopathy (L), Lymphadenopathy (R) Respiratory/Chest: No Respiratory Distress, Lungs Clear, Normal Breath Sounds, No Accessory Muscle Use, Chest Non-Tender. No: Pleural Rub, Retractions Cardiovascular: Normal Peripheral Pulses, No Edema, No Gallop, No JVD, No Murmur , No Rub, Tachycardia (Regular rhythm). No: Gallop/S3, Gallop/S4, Friction Rub Peripheral Pulses: 2+: Radial (L), Radial (R), Dorsalis Pedis (L), Dorsalis Pedis (R) GI/Abdominal: Normal Bowel Sounds, Soft, Non-Tender, No Organomegaly, No Distention, No Abnormal Bruit, No Mass, Pelvis Stable. No: Guarding (Male) Exam: Deferred Rectal (Males) Exam: Deferred Back Exam: Normal Inspection, Full Range of Motion. No: CVA Tenderness (L), CVA Tenderness (R), Muscle Spasm Extremities: No Pedal Edema, Normal Capillary Refill, Leg Pain (Possible left hip pain), Limited Range of Motion (Left hip with left leg inner rotation) Neurological: Alert, Normal Reflexes (Negative Babinski's), Confused (Stable moderate to severe), Other (Nonverbal. Moderate to severe rigidity and cogwheeling.) Psychiatric: Other (Combative) Skin Exam: Ecchymosis (Multiple minor areas of old ecchymosis secondary to multiple previous falls), Pallor (Moderate). No: Diaphoretic, Wound/Incision Lymphatic: No Adenopathy Course - Vital Signs Last Recorded V/S: Last Vital Signs Temp 37.2 C 03/19/18 03:16 Pulse 108 H 03/19/18 01:40 Resp 16 03/19/18 03:16 BP 101/66 03/19/18 03:16 Pulse Ox 100 03/19/18 03:16 Vital Signs - 24 hr 03/19/18 03/19/18 03/19/18 01:40 01:57 02:35 Temperature [ 37.2 C Oral] Pulse, 108 H Peripheral [ Pulse Oximetry] Respiratory 17 17 17 Rate Blood Pressure 107/80 [Left Upper Arm ] Blood Pressure 123/65 135/84 [Right Upper Arm] O2 Sat by Pulse 100 98 100 Oximetry 03/19/18 03/19/18 02:50 03:16 Temperature [ 37.2 C Oral] Pulse, Peripheral [ Pulse Oximetry] Respiratory 16 16 Rate Blood Pressure 97/70 101/66 [Left Upper Arm ] Blood Pressure [Right Upper Arm] O2 Sat by Pulse 100 100 Oximetry - Orders/Labs/Meds Orders: Active Orders 24 hr Category Date Time Status Cardiac Monitoring [RC] . DIRECTED Care 03/19/18 01:50 Active Peripheral IV Care [RC] . DIRECTED Care 03/19/18 02:47 Active Hip Min 2V or 3V w Pelvis Lt [CR] Stat Exams 03/19/18 01:50 Taken Sodium Chloride 0.9% [Saline Flush] Med 03/19/18 02:46 Active 10 ml FLUSH ASDIRECTED PRN Obtain Past Medical Record [OM.PC] Routine Oth 03/19/18 01:51 Active Peripheral IV Insertion Adult [OM.PC] Routine Oth 03/19/18 02:46 Ordered Medication Orders Sodium Chloride (Saline Flush) 10 ml FLUSH ASDIRECTED PRN PRN Reason: Keep Vein Open Last Admin: 03/19/18 03:15 Dose: 10 ml Labs: Laboratory Tests 03/19/18 03/19/18 03/19/18 Range/Units 02:05 02:05 02:05 WBC 9.0 (4.0-10.2) K/uL RBC 1.92 L (4.33-5.41) M/uL Hgb 5.6 L* D (13.1-16.8) g/dL Hct 18.2 L* (39.0-49.0) % MCV 94.8 (84.0-98.0) fL MCH 29.2 (28.2-33.3) pg MCHC 30.8 L (31.7-36.0) g/dL RDW 12.8 (11.2-14.1) % Plt Count 325 (150-350) K/uL Neut % (Auto) 79.3 (45.0-80.0) % Lymph % (Auto) 12.7 (10.0-50.0) % [place] % (Auto) 6.3 (2.0-14.0) % Eos % (Auto) 1.5 (0.0-5.0) % Baso % (Auto) 0.2 (0.0-2.0) % Neut # (Auto) 7.16 H (1.40-7.00) K/uL Lymph # (Auto) 1.15 (0.50-3.50) K/uL [place] # (Auto) 0.57 (0.00-1.00) K/uL Eos # (Auto) 0.14 (0.00-0.50) K/uL Baso # (Auto) 0.02 (0.00-0.20) K/uL PT 10.6 (9.8-11.7) SEC INR 1.0 APTT 23.6 (22.1-29.8) SEC Sodium 141 (136-145) mmol/L Potassium 4.0 (3.5-5.1) mmol/L Chloride 105 (98-107) mmol/L Carbon Dioxide 28.6 (21.0-32.0) mmol/L BUN 39 H (7-18) mg/dL Creatinine 0.91 (0.51-1.17) mg/dL Est Cr Clr Drug Dosing TNP Estimated GFR (MDRD) > 60 mL/min Glucose 112 H (74-106) mg/dL Lactic Acid (0.4-2.0) mmol/L Calcium 8.5 (8.5-10.1) mg/dL Total Bilirubin 0.5 (0.2-1.0) mg/dL AST 13 L (15-37) U/L ALT 15 (12-78) U/L Alkaline Phosphatase 76 (46-116) IU/L Total Protein 6.4 (6.4-8.2) g/dL Albumin 3.2 L (3.4-5.0) g/dL 03/19/18 Range/Units 02:05 WBC (4.0-10.2) K/uL RBC (4.33-5.41) M/uL Hgb (13.1-16.8) g/dL Hct (39.0-49.0) % MCV (84.0-98.0) fL MCH (28.2-33.3) pg MCHC (31.7-36.0) g/dL RDW (11.2-14.1) % Plt Count (150-350) K/uL Neut % (Auto) (45.0-80.0) % Lymph % (Auto) (10.0-50.0) % [place] % (Auto) (2.0-14.0) % Eos % (Auto) (0.0-5.0) % Baso % (Auto) (0.0-2.0) % Neut # (Auto) (1.40-7.00) K/uL Lymph # (Auto) (0.50-3.50) K/uL [place] # (Auto) (0.00-1.00) K/uL Eos # (Auto) (0.00-0.50) K/uL Baso # (Auto) (0.00-0.20) K/uL PT (9.8-11.7) SEC INR APTT (22.1-29.8) SEC Sodium (136-145) mmol/L Potassium (3.5-5.1) mmol/L Chloride (98-107) mmol/L Carbon Dioxide (21.0-32.0) mmol/L BUN (7-18) mg/dL Creatinine (0.51-1.17) mg/dL Est Cr Clr Drug Dosing Estimated GFR (MDRD) mL/min Glucose (74-106) mg/dL Lactic Acid 2.0 (0.4-2.0) mmol/L Calcium (8.5-10.1) mg/dL Total Bilirubin (0.2-1.0) mg/dL AST (15-37) U/L ALT (12-78) U/L Alkaline Phosphatase (46-116) IU/L Total Protein (6.4-8.2) g/dL Albumin (3.4-5.0) g/dL Meds: Medications Generic Name Dose Route Start Last Admin Trade Name Freq PRN Reason Stop Dose Admin Sodium Chloride 10 ml 03/19/18 02:46 03/19/18 03:15 Saline Flush FLUSH 10 ml ASDIRECTED PRN Administration Keep Vein Open Discontinued Medications Generic Name Dose Route Start Last Admin Trade Name Freq PRN Reason Stop Dose Admin Famotidine 40 mg 03/19/18 03:11 03/19/18 03:15 Pepcid IVPUSH 03/19/18 03:12 40 mg ONETIME ONE Administration Pantoprazole Sodium 40 mg 03/19/18 03:11 03/19/18 03:15 Protonix Iv IVPUSH 03/19/18 03:12 40 mg ONETIME ONE Administration - Radiology Interpretation Free Text/Narrative:: 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 X-rays of the pelvis, one view and lateral x-ray of the left hip shows no evidence of fracture or dislocation Departure - Departure Time of Disposition: 03:30 Disposition: DC/Tfer to Acute Hospital 02 Condition: Poor Clinical Impression: Comfort measures only status, Dementia with Lewy bodies, GERD ( gastroesophageal reflux disease), Multiple falls, Contusion of left hip, Anemia - Discharge Information *PRESCRIPTION DRUG MONITORING PROGRAM REVIEWED*: Not Applicable *COPY OF PRESCRIPTION DRUG MONITORING REPORT IN PATIENT VALENTIN: Not Applicable Referrals: Sheets-Florencia Morfin MD [Primary Care Provider] - Forms: ED Department Discharge, Interfacility Transfer EMTALA - Problem List & Annotations (1) Comfort measures only status SNOMED Code(s): 16634190668368 Code(s): Z51.5 - ENCOUNTER FOR PALLIATIVE CARE Status: Chronic Priority: Medium Annotation/Comment:: Comfort/palliative care and firm per the patient' s by telephone consultation as above (2) Anemia SNOMED Code(s): 403000457 Code(s): D64.9 - ANEMIA, UNSPECIFIED Status: Acute Priority: High Onset Date: 01/21/18 Annotation/Comment:: Progressive anemia of unknown etiology today with hemoglobin of 5.6 in comparison to hemoglobin of 8.5 on 02/12. Note current cachexia and history of GERD with no current abdominal pain or evidence of GI bleed by limited history. Initial telephone consultation with the patient's at 02:25 hours confirming current NO CODE STATUS and her wishes to have the patient transferred to [place] for blood transfusions and possible further workup. Subsequent telephone consultation at 02:[address] Ventura hospitalist at the [facility] in [place] with no bed available in their facility and authorization received for transfer to [place]. Per the patient 's 's request subsequent telephone consultation at 02:[address] Velasquez , hospitalist at [facility], who does accept the patient for direct admission and no further treatment recommendations were given. Note long history of chronic iron deficiency anemia with stable vital signs and no clinical indication for immediate frozen plasma, blood transfusion, etc. Anemia may be partial etiology of patient's recurrent falls in addition to his Parkinson's disease as above. Newly diagnosed iron deficiency anemia today. He was placed on telemetry secondary to his anemia with no evidence of chest pain, syncope, etc. Saline lock placed prior to transfer. Qualifiers: Anemia type: iron deficiency Iron deficiency anemia type: unspecified iron deficiency Qualified Code(s): D50.9 - Iron deficiency anemia, unspecified (3) Parkinsons disease SNOMED Code(s): 88496834 Code(s): G20 - PARKINSON'S DISEASE Status: Chronic Priority: Medium Annotation/Comment:: History of recurrent falls. Poor control at this time. (4) GERD (gastroesophageal reflux disease) SNOMED Code(s): 466617678 Code(s): K21.9 - GASTRO-ESOPHAGEAL REFLUX DISEASE WITHOUT ESOPHAGITIS Status: Chronic Priority: Medium Annotation/Comment:: Stable by history with no recent abdominal complaints despite progressive anemia as above. Note comfort care with further GI workup depending on his clinical course. High-dose IV Protonix and IV Pepcid initiated in the emergency room as GI prophylaxis. Qualifiers: Esophagitis presence: without esophagitis Qualified Code(s): K21.9 - Gastro -esophageal reflux disease without esophagitis (5) Osteoarthritis SNOMED Code(s): 854603979 Code(s): M19.90 - UNSPECIFIED OSTEOARTHRITIS, UNSPECIFIED SITE Status: Chronic Priority: Medium Annotation/Comment:: Otherwise Stable by history Qualifiers: Osteoarthritis location: multiple joints Osteoarthritis type: primary Qualified Code(s): M15.0 - Primary generalized (osteo)arthritis (6) Dementia with Lewy bodies SNOMED Code(s): 813551419 Code(s): G31.83 - DEMENTIA WITH LEWY BODIES; F02.80 - DEMENTIA IN OTH DISEASES CLASSD ELSWHR W/O BEHAVRL DISTURB Status: Chronic Priority: Medium Annotation/Comment:: Stable by history with fairly significant organic brain syndrome/dementia, although the patient is normally ambulatory. Note patient combative at times. Qualifiers: Dementia behavioral disturbance: with behavioral disturbance Qualified Code (s): G31.83 - Dementia with Lewy bodies; F02.81 - Dementia in other diseases classified elsewhere with behavioral disturbance (7) Contusion of left hip SNOMED Code(s): 56833617 Code(s): S70.02XA - CONTUSION OF LEFT HIP, INITIAL ENCOUNTER Status: Acute Priority: High Onset Date: 01/21/18 Annotation/Comment:: Moderate left hip contusion today with no evidence of acute fracture. Note previous left hip contusion on 01/21/18 with gluteal hematoma at that time. Qualifiers: Encounter type: initial encounter Qualified Code(s): S70.02XA - Contusion of left hip, initial encounter - Problem List Review Problem List Initiated/Reviewed/Updated: Yes - My Orders Last 24 Hours: My Active Orders 03/19/18 01:50 Cardiac Monitoring [RC] . DIRECTED Hip Min 2V or 3V w Pelvis Lt [CR] Stat 03/19/18 01:51 Obtain Past Medical Record [OM.PC] Routine 03/19/18 02:46 Sodium Chloride 0.9% [Saline Flush] 10 ml FLUSH ASDIRECTED PRN Peripheral IV Insertion Adult [OM.PC] Routine 03/19/18 02:47 Peripheral IV Care [RC] . DIRECTED - Assessment/Plan Last 24 Hours: My Active Orders 03/19/18 01:50 Cardiac Monitoring [RC] . DIRECTED Hip Min 2V or 3V w Pelvis Lt [CR] Stat 03/19/18 01:51 Obtain Past Medical Record [OM.PC] Routine 03/19/18 02:46 Sodium Chloride 0.9% [Saline Flush] 10 ml FLUSH ASDIRECTED PRN Peripheral IV Insertion Adult [OM.PC] Routine 03/19/18 02:47 Peripheral IV Care [RC] . DIRECTED Assessment:: As above Plan: As above. Extensive precautions were given to the patient's , who is in agreement with the treatment plan. Ambulance transfer with table machine operator accompaniment as above.
[2018-03-19 02:28] LABS: CHLORIDE,CL 105 mmol/L (98-107); SODIUM,NA 141 mmol/L (136-145)
[2018-03-19] MEDS ORDERED: Sodium Chloride 0.9% 10 ML Syringe FLUSH PRN (02:46)
[2018-03-19] MEDS ORDERED: Pantoprazole 40 MG Vial IVPUSH ONE (03:11)
[2018-03-19] MEDS ORDERED: Famotidine 20 MG/2 ML SDV IVPUSH ONE (03:11)
[2018-03-19 03:16] VITALS: BP 101/66
== END 2018-03-19 03:30 ==
LOC: LL.ED 01:24
DX: S70.02XA Contusion of left hip, initial encounter (principal); D64.9 Anemia, unspecified; K21.9 Gastro-esophageal reflux disease without esophagitis; G31.83 Neurocognitive disorder with Lewy bodies; E78.00 Pure hypercholesterolemia, unspecified; F02.80 Dementia in other diseases classified elsewhere, unspecified severity, without behavioral disturbance, psychotic disturbance, mood disturbance, and anxiety; Z79.899 Other long term (current) drug therapy; W19.XXXA Unspecified fall, initial encounter
CPT/HCPCS: 36415; 80053; 83605; 85025; 85610; 85730; 96374; 96375; 99285; C9113; J3490; J7050